=== PATIENT | female | born 1990 | race Caucasian/White ===

== ENCOUNTER 2022-04-16 04:50 | Emergency (ER) | payer BC, SELFPAY ==
[2022-04-16] VITALS (11 sets, daily range): BP systolic 102–136; BP diastolic 55–80; PULSE 76–110; RESP 18; TEMP 36.9; O2SAT 95–99; BMI 33.1
--- NOTE | 2022-04-16 05:13 | ED_ITS ---
HPI - General Adult General Chief complaint: Abdominal Pain Stated complaint: left abd pain, 22 weeks Time Seen by Provider: 04/16/22 04:59 Source: patient Mode of arrival: Ambulatory History of Present Illness HPI narrative: Patient is a 31-year-old female. at approximately 22 weeks EGA. Is not from this area. Is visiting his sister. Is here for evaluation of pressure in her lower abdomen on the left side of her back. States that the symptoms woke her up several hours prior to arrival. She went to use the restroom. She urinated okay but still is having quite a bit of pressure. No vaginal bleeding. No cramping. No change in bowel habits. No fevers. She did take some Tylenol prior to arrival. Review of Systems Cardiovascular Cardiovascular: Reports system reviewed and no additional complaints, except as documented Respiratory Respiratory: Reports system reviewed and no additional complaints, except as documented Gastrointestinal Gastrointestinal: Reports system reviewed and no additional complaints, except as documented Genitourinary Genitourinary: Reports system reviewed and no additional complaints, except as documented Integumentary/Breasts Skin/Breast: Reports system reviewed and no additional complaints, except as documented Neurologic Neurologic: Reports system reviewed and no additional complaints, except as documented Hematologic/Lymphatic On Anticoagulants: No Patient History Social History Smoking Status: Never smoker Smoking Status: Never smoker Substance Use Type: does not use Exam Initial Vital Signs Initial Vital Signs: Vital Signs Temperature 98.4 F 04/16/22 05:00 Pulse Rate 110 H 04/16/22 05:00 Respiratory Rate 18 04/16/22 05:00 Blood Pressure 136/80 04/16/22 05:00 Pulse Oximetry 98 04/16/22 05:00 Oxygen Delivery Method Room Air 04/16/22 05:00 Const General: cooperative, comfortable and No ill appearing HENMT Head: normal to inspection and normocephalic Resp Effort & Inspection: normal respiratory effort Auscultation: clear to auscultation bilaterally Cardio Rate: regular rate Rhythm: regular rhythm GI Other: Gravid abdomen, has some tenderness in the lower abdomen which she describes as pressure. Skin General: no rashes or lesions noted Neuro General: patient alert, patient awake and moves all extremities Extrem General: capillary refill normal Course Orders Ordered: ED Orders 04/16/22 05:30 Urine Microscopic Stat 04/16/22 05:51 US renal complete Stat 04/16/22 06:03 Basic Metabolic Panel Stat Complete Blood Count AUTO DIFF Stat Discontinued Medications Sodium Chloride (Normal Saline 0.9%) 1,000 mls @ 1,000 mls/hr IV BOLUS ONE Stop: 04/16/22 08:00 Last Admin: 04/16/22 07:03 Dose: 1,000 mls/hr Documented By: SARI Vital Signs Vital signs: Vital Signs - 8 hr 04/16/22 05:00 04/16/22 05:20 04/16/22 05:21 Temperature 98.4 F Pulse Rate 110 H 94 H Respiratory Rate 18 Blood Pressure 136/80 Pulse Oximetry 98 97 96 Oxygen Delivery Method Room Air Room Air Room Air 04/16/22 05:21 04/16/22 06:02 04/16/22 06:02 Temperature Pulse Rate 89 Respiratory Rate Blood Pressure 126/69 118/74 Pulse Oximetry 98 Oxygen Delivery Method Room Air 04/16/22 06:30 04/16/22 06:30 04/16/22 07:00 Temperature Pulse Rate 85 76 Respiratory Rate Blood Pressure 102/57 L Pulse Oximetry 97 99 Oxygen Delivery Method Room Air Medical Decision Making Lab Data Lab results reviewed: Yes I reviewed the patient's lab results. 04/16/22 06:03 04/16/22 06:03 Labs: Lab Results 04/16/22 04/16/22 04/16/22 Range/Units 05:30 06:03 06:03 WBC 10.8 (4.5-11.0) X10^3/uL RBC 3.64 L (4.0-5.2) X10^6/uL Hgb 11.2 L (12.0-16.0) g/dL Hct 33.2 L (36-46) % MCV 91.1 (80-100) fL MCH 30.8 (26-34) PG MCHC 33.8 (30-36) % RDW 13.0 (11.6-14.8) % Plt Count 245 (150-400) X10^3/uL Neut % (Auto) 81.0 H (50-75) % Lymph % (Auto) 12.3 L (25-40) % [place] % (Auto) 6.0 (3-14) % Eos % (Auto) 0.4 L (2-4) % Baso % (Auto) 0.3 (0-2) % Neut # (Auto) 8800 H (8492-0581) /uL Lymph # (Auto) 1300 (2654-5623) /uL [place] # (Auto) 600 (0-900) /uL Eos # (Auto) 0 (0-450) /uL Baso # (Auto) 0 (0-100) /uL Sodium 135 L (137-145) mmol/L Potassium 3.6 (3.4-5.1) mmol/L Chloride 102 (98-107) mmol/L Carbon Dioxide 22 (22-32) mmol/L BUN 9 (7-17) mg/dL Creatinine 0.67 (0.52-1.04) mg/dL Estimated GFR > 60 (>60) mL/min BUN/Creatinine Ratio 13.4 (6-22) Glucose 97 (70-100) mg/dL Calcium 8.6 (8.4-10.2) mg/dL Urine RBC 1-5/hpf (0-5/HPF) Urine WBC 0-1/hpf (0-5/HPF) Ur Squamous Epith Cells 5-10 /hpf H (0-5/HPF) Urine Bacteria Few (2-10) H (None) Hyaline Casts 0-1/lpf (None) Urine Mucus 2+ H (Negative) Ur Culture Indicated? Cult not indicated Urine Dip Bedside Urine Glucose Negative Bedside Urine Bilirubin - Negative Bedside Urine Ketone +/- 5 Urine Specific [place] 1.025 Bedside Urine Occult Blood +/- Bedside Urine pH 6.0 Bedside Urine Protein +/- 15 Bedside Urine Urobilinogen - Negative Bedside Urine Nitrite - Negative Bedside Urine Leukocytes - Negative Esterase Point of care testing: Urine Dip Bedside Urine Glucose Negative Bedside Urine Bilirubin - Negative Bedside Urine Ketone +/- 5 Urine Specific [place] 1.025 Bedside Urine Occult Blood +/- Bedside Urine pH 6.0 Bedside Urine Protein +/- 15 Bedside Urine Urobilinogen - Negative Bedside Urine Nitrite - Negative Bedside Urine Leukocytes - Negative Esterase MDM Narrative Medical decision making narrative: After fluids patient states that her symptoms are improving. Bedside ultrasound shows IUP with a heart rate in the 150s. She is not having any loss of fluid. Urinalysis does not have any indication of a infection. Patient did have NST at bedside which did show some contractions but not related to any sort of pain. Renal ultrasound showed no hydro. This was done for evaluation of potential kidney stone. Based on her presentation today had recommend that we do not perform any CT scan especially since her symptoms have improved. Potentially the Tylenol has helped this. Unsure the exact etiology but will discharge patient home. Patient understands this she is in agreement with plan. Discharge Plan Departure Patient Disposition: Home Clinical Impression: Abdominal pain during Instructions: DI for Abdominal Pain-Adult Activity Restrictions/Additional Instructions: Your workup here in the emergency department is very reassuring. I recommend that you increase your fluid intake. Return to the emergency department for any new or worsening symptoms. Referrals: Natalia Bahena [Other] Stand Alone Forms: Patient Portal/API
--- NOTE | 2022-04-16 05:51 | DI.US.S_ITS ---
PROCEDURE: US RENAL COMPLETE INDICATIONS: LEFT FLANK PAIN TECHNIQUE: Real-time scanning was performed of the kidneys and bladder, with image documentation. COMPARISON: None. FINDINGS: Kidneys: Kidneys are normal in size. Right kidney measures 11.3 cm long; left kidney measures 11.7 cm long. Right renal cortical thickness is 1.3 cm; left renal cortical thickness is 1.3 cm. Renal cortical echotexture is normal. No hydronephrosis or nephrolithiasis. No suspicious solid mass lesions. Bladder: Pre-void bladder volume is 229 mL. Post-void residual is 0 mL. Pre-void images demonstrate no intraluminal masses or stones. On pre-void images, both ureteral jets are noted with color Doppler interrogation. (Of note, ureteral jets may not be detectable in up to 25% of cases due to insufficient differences in specific gravity between ureteral and bladder urine). Miscellaneous: No free pelvic fluid. Incidentally noted is a fetus with heart rate 144 BPM. IMPRESSION: Normal renal ultrasound exam. No hydronephrosis. A cause for left flank pain is not identified. Dictated by: Julio Begum M.D. on 04/16/2022 at 8:16 Approved by: Julio Begum M.D. on 04/16/2022 at 8:35
[2022-04-16 06:14] LABS: Add Manual Diff / Slide Review NO; Basophils Absolute Auto 0 /uL (0-100); Basophils Percent Auto 0.3 % (0-2); Eosinophils Absolute Auto 0 /uL (0-450); Eosinophils Percent Auto 0.4 % (2-4); Hematocrit 33.2 % (36-46); Hemoglobin 11.2 g/dL (12.0-16.0); Lymphocytes Absolute Auto 1300 /uL (1100-4500); Lymphocytes Percent Auto 12.3 % (25-40); Mean Corpuscular HGB Conc 33.8 % (30-36); Mean Corpuscular Hemoglobin 30.8 PG (26-34); Mean Corpuscular Volume 91.1 fL (80-100); Monocytes Absolute Auto 600 /uL (0-900); Neutrophils Absolute Auto 8800 /uL (1500-7000); Platelet Count 245 X10^3/uL (150-400); Red Blood Cell Count 3.64 X10^6/uL (4.0-5.2); White Blood Cell Count 10.8 X10^3/uL (4.5-11.0)
[2022-04-16 06:20] LABS: RBC Urine 1-5/HPF (0-5/HPF); WBC Urine 0-1/HPF (0-5/HPF)
[2022-04-16 06:21] LABS: Bacteria Urine Few (2-10); Hyaline Casts Urine 0-1/LPF; Mucus Urine 2+ (Negative); Squamous Epithelial Cell Urine 5-10 /HPF (0-5/HPF)
[2022-04-16 06:22] LABS: Culture Indicated Urine Cult Not Indicated
[2022-04-16 06:22] LABS: BUN Creatinine Ratio 13.4 (6-22); Blood Urea Nitrogen 9 mg/dL (7-17); Calcium 8.6 mg/dL (8.4-10.2); Carbon Dioxide 22 mmol/L (22-32); Chloride 102 mmol/L (98-107); Estimated Glomerular Filt Rate > 60 mL/min (>60); Glucose 97 mg/dL (70-100); HEMOLYSIS < 15 (0-50); Potassium 3.6 mmol/L (3.4-5.1); Sodium 135 mmol/L (137-145)
[2022-04-16] MEDS: SODIUM CHLORIDE 0.9% 1,000 ML 1000 ML IV (07:03)
== END 2022-04-16 09:21 | disposition home or self-care (01) ==
PROVIDERS: Emergency Provider Emergency Medicine
DX: O26.892 Other specified pregnancy related conditions, second trimester (principal); R10.9 Unspecified abdominal pain; Z3A.22 22 weeks gestation of pregnancy
CPT/HCPCS: 76770; 80048; 81003; 81015; 85025; 96360; 96361; 99283; 99284